=== PATIENT | male | born 1950 | race Caucasian/White ===

== ENCOUNTER → 2016-11-24 | Outpatient (CLI) | payer MEDICARE, MEDICAID ==
[2016-11-24 10:07] LABS: ALBUMIN 3.6 gm/dl (3.1-4.5); ALKALINE PHOSPHATASE 87 U/L (45-117); BILIRUBIN, DIRECT < 0.1 mg/dL (0.0-0.2); BILIRUBIN, TOTAL 0.6 mg/dl (0.2-1.0); BUN 17 mg/dl (7-24); CARBON DIOXIDE 27 mmol/L (21-32); CHLORIDE 106 mmol/L (98-107); CHOLESTEROL 164 mg/dL (<200); EST GLOM FILT AFRICAN AMERICAN > 60 ml/min; FREE T4 1.03 ng/dl (0.76-1.46); GLUCOSE 89 mg/dL (65-99); HDL CHOLESTEROL 48 mg/dl (40-60); LDL CHOLESTEROL 96 mg/dL (9-159); POTASSIUM 4.1 mmol/L (3.5-5.1); SGOT/AST 25 IU/L (3-35); SGPT/ALT 22 U/L (12-78); SODIUM 140 mmol/L (136-145); T3 UPTAKE 32 % (31-39); TOTAL PROTEIN 7.4 gm/dL (6.4-8.2); TRIGLYCERIDES 99 mg/dl (<150); VLDL CHOLESTEROL 20 mg/dL (6-40)
[2016-11-24 10:18] LABS: BASO # 0.1 10*3/uL (0.0-0.1); BASO % 0.9 % (0.0-1.0); EOS # 0.2 10*3/uL (0.0-0.4); EOS % 2.7 % (1.0-4.0); HEMATOCRIT 40.3 % (42.0-52.0); HEMOGLOBIN 13.5 g/dl (14.0-18.0); LYMPH # 1.7 10*3/uL (1.3-4.4); LYMPH % 27.1 % (27.0-41.0); MEAN CELL VOLUME 96.2 fl (80.0-94.0); MEAN CORPUSCULAR HGB 32.2 pg (27.0-31.0); MEAN CORPUSCULAR HGB CONC 33.5 g/dl (33.0-37.0); MEAN PLATELET VOLUME 11.3 fl (9.6-12.3); MONO # 0.6 10*3/uL (0.1-1.0); MONO % 9.5 % (3.0-9.0); NEUT # 3.8 10*3/uL (2.3-7.9); NEUT % 59.6 % (47.0-73.0); PLATELET COUNT AUTOMATED 167 10*3/uL (130-400); RED BLOOD COUNT 4.19 10*6/uL (4.50-5.90); WHITE BLOOD COUNT 6.4 10*3/uL (4.8-10.8)
== END | disposition home or self-care (01) ==
LOC: LAB 09:20
PROVIDERS: Nurse Practitioner Family
DX: Z79.899 Other long term (current) drug therapy (principal)